=== PATIENT | male | born 1950 | race Caucasian/White ===

== ENCOUNTER 2016-08-20 09:11 | Inpatient (IN) | payer OTHER, MEDICAID ==
[~2016-08-20] VITALS: Ht 195.6 cm; Wt 144.2 kg
[2016-10-02] MEDS ORDERED: ASPIRIN 81M81 MG/TA2 PO (14:28)
[2016-10-02] MEDS ORDERED: PEPCID 20MG TAB20 MG PO (14:28)
[2016-10-02] MEDS ORDERED: FOLIC ACID 40400 MCG PO (14:29)
[2016-10-02] MEDS ORDERED: VITAMIN B-1000 MCG/T PO (14:30)
[2016-10-02] MEDS ORDERED: ALDACTONE 25MG25 M1 PO (14:30)
[2016-10-02] MEDS ORDERED: COZAAR 50MG50 MG/TAB PO (14:31)
[2016-10-02] MEDS ORDERED: REMERON SOLTAB15 MG PO (14:31)
[2016-10-02] MEDS ORDERED: GLUCOPHAGE500 MG/TAB PO (14:34)
[2016-10-02] MEDS ORDERED: FLOMAX 0.40.4 MG/CAP PO (14:35)
[2016-10-02] MEDS ORDERED: NEURONTIN300 MG/CAP PO (14:35)
[2016-10-02] MEDS ORDERED: LASIX 80MG TABL80 MG (14:35)
[2016-10-02] MEDS ORDERED: LASIX 80MG TABL80 MG PO (14:36)
[2016-10-02] MEDS ORDERED: TOPROL XL 25MG25 MG PO (14:37)
[2016-10-02] MEDS ORDERED: DESYREL 50MG50 MG PO (14:39)
[2016-10-02] MEDS ORDERED: VOLTAREN GEL 1%1 TU (14:40)
[2016-10-02] MEDS ORDERED: RESTORIL30 MG PO (14:41)
[2016-10-05] VITALS (11 sets, daily range): BP systolic 118–155; BP diastolic 56–89; PULSE 36–88; TEMP 98–98.7
[2016-10-05] MEDS ORDERED: ULTRAM 50MG TAB50 MG PO (10:00)
[2016-10-06 00:07] VITALS: BP 127/63; PULSE 55; TEMP 98
[2016-10-06 04:19] VITALS: BP 119/63; PULSE 76; TEMP 97.8
[2016-10-06 07:13] LABS: HEMATOCRIT 40.2 % (42.0-52.0); HEMOGLOBIN 13.5 g/dl (13.5-18.0)
[2016-10-06 07:35] VITALS: BP 138/73; PULSE 98; TEMP 97.5
[2016-10-06 12:04] VITALS: BP 129/67; PULSE 47; TEMP 98.3
[2016-10-06 12:50] LABS: BASO % 0.2 % (0.0-2.0); EOS % 0.4 % (0-4.0); GRAN # 8.4 (1.4-6.5); GRAN % 78.7 % (42.2-75.2); HEMATOCRIT 41.3 % (42.0-52.0); HEMOGLOBIN 13.7 g/dl (13.5-18.0); LYMPH # 1.3 (1.2-3.4); LYMPH % 12.1 % (20.0-51.0); MEAN CELL VOLUME 93 fl (80.0-100.0); MEAN CORPUSCULAR HEMOGLOBIN 31 pg (27.0-31.0); MEAN CORPUSCULAR HGB CONC 33 g/dl (33.0-37.0); MEAN PLATELET VOLUME 10.9 fl (7.4-10.4); MONO # 0.9 (0.1-0.6); MONO % 8.2 % (1.7-9.3); PLATELET COUNT 106 K/mm3 (130-400); RED BLOOD COUNT 4.46 M/mm3 (4.20-5.60); REDCELL DISTRIBUTION WIDTH-CV 13.6 % (11.5-14.5); WHITE BLOOD COUNT 10.6 K/mm3 (4.8-10.8)
[2016-10-06 12:58] LABS: ADJUSTED CALCIUM 10.4 mg/dL (8.4-10.2); ALBUMIN 3.3 gm/dL (3.5-5.0); BILIRUBIN,TOTAL 0.8 mg/dL (0.0-1.0); CALCIUM 9.8 mg/dL (8.4-10.2); CREATININE, serum 0.89 mg/dL (0.66-1.25); POTASSIUM 4.2 mmol/L (3.4-5.0); TOTAL PROTEIN 6.3 gm/dL (6.4-8.2)
[2016-10-06 16:05] VITALS: BP 146/65; PULSE 52; TEMP 98.3
[2016-10-06 20:18] VITALS: BP 117/63; PULSE 52; TEMP 98.5
[2016-10-07 00:20] VITALS: BP 125/87; PULSE 48; TEMP 98.1
[2016-10-07 04:02] VITALS: BP 148/77; PULSE 45; TEMP 98.1
[2016-10-07 07:01] VITALS: BP 152/70; PULSE 100; TEMP 98.9
[2016-10-07 07:38] LABS: HEMATOCRIT 39.6 % (42.0-52.0)
[2016-10-07] MEDS ORDERED: ASPIRIN 32325 MG/TAB PO (09:40)
[2016-10-07] MEDS ORDERED: GLUCOPHAGE500 MG/TAB PO (09:40)
[2016-10-07] MEDS ORDERED: MINOCYCLIN100 MG/CAP PO (10:10)
[2016-10-07] MEDS ORDERED: NORCO 325 MG-7.1 TAB PO (10:11)
[2016-10-07] MEDS ORDERED: ROXICODONE 55 MG/TAB PO (10:11)
[2016-10-07] MEDS ORDERED: FLEXERIL 1010 MG/TAB PO (10:12)
[2016-10-07 11:41] VITALS: BP 144/73; PULSE 68; TEMP 98.5
== END 2016-10-07 16:43 | disposition home or self-care (01) | DRG 470 ==
LOC: JCC 10-05 08:23
PROVIDERS: Internal Medicine; Orthopaedic Surgery
PROC: 0SRC0J9 Replacement of Right Knee Joint with Synthetic Substitute, Cemented, Open Approach (ICD-10-PCS; principal; 2016-10-05 13:30)
DX: M17.11 Unilateral primary osteoarthritis, right knee (principal); Z68.41 Body mass index [BMI] 40.0-44.9, adult; I50.20 Unspecified systolic (congestive) heart failure; E66.01 Morbid (severe) obesity due to excess calories; E11.9 Type 2 diabetes mellitus without complications; Z79.84 Long term (current) use of oral hypoglycemic drugs; Z85.820 Personal history of malignant melanoma of skin; I12.9 Hypertensive chronic kidney disease with stage 1 through stage 4 chronic kidney disease, or unspecified chronic kidney disease; N18.3 Chronic kidney disease, stage 3 (moderate)
CPT/HCPCS: 99223; 99232-AI; A4315; A9284; C1713; C1776; J0690; J1100; J1815; J2250; J2270; J2405; J2704; J3260; J7030

== ENCOUNTER → 2016-09-22 | Outpatient (CLI) | payer OTHER, MEDICAID ==
[~2016-09-22] MED LIST: ALDACTONE 25MG25 M1 PO; ASPIRIN 32325 MG/TAB PO; ASPIRIN 81M81 MG/TA2 PO; COZAAR 50MG50 MG/TAB PO; DESYREL 50MG50 MG PO; ELIQUIS 5MG PO; FERROUS SU325 MG/TAB PO; FLEXERIL 1010 MG/TAB PO; FLOMAX 0.40.4 MG/CAP PO; FOLIC ACID 40400 MCG PO; GLUCOPHAGE500 MG/TAB PO; GOOD NEIGH1200 MG/15 PO; LASIX 80MG TABL80 MG; LASIX 80MG TABL80 MG PO; MINOCYCLIN100 MG/CAP PO; NATURAL E400 IU PO; NEURONTIN300 MG/CAP PO; NORCO 325 MG-7.1 TAB PO; PEPCID 20MG TAB20 MG PO; REMERON SOLTAB15 MG PO; RESTORIL30 MG PO; ROXICODONE 55 MG/TAB PO; SENOKOT8.6 MG PO; TOPROL XL 25MG25 MG PO; TYLENOL 500MG500 MG PO; ULTRAM 50MG TAB50 MG PO; VITAMIN B-1000 MCG/T PO; VITAMIN C500 MG PO; VOLTAREN GEL 1%1 TU
[2016-09-22 18:33] LABS: HIV 1/2 Antibodies Non-Reactive; HIV-1p24 Antigen Non-Reactive
== END ==
LOC: ZCOL.LAB 16:55 → COL.LAB 16:55
PROVIDERS: Orthopaedic Surgery
DX: Z01.812 Encounter for preprocedural laboratory examination (principal); M25.861 Other specified joint disorders, right knee

== ENCOUNTER 2016-11-03 15:43 | Inpatient (IN) | payer MEDICARE, MEDICAID ==
[~2016-11-03] VITALS: Ht 195.6 cm; Wt 129.6 kg
[~2016-11-03 15:43] MED LIST changes: -ELIQUIS 5MG PO; -FERROUS SU325 MG/TAB PO; -GOOD NEIGH1200 MG/15 PO; -NATURAL E400 IU PO; -SENOKOT8.6 MG PO; -TYLENOL 500MG500 MG PO; -VITAMIN C500 MG PO
[2016-12-30] VITALS (11 sets, daily range): BP systolic 117–1218; BP diastolic 50–92; PULSE 45–73; TEMP 98.3–98.9
[2016-12-30] MEDS ORDERED: FERROUS SU325 MG/TAB PO (09:35)
[2016-12-30] MEDS ORDERED: VITAMIN C500 MG PO (09:36)
[2016-12-30] MEDS ORDERED: SENOKOT8.6 MG PO (09:36)
[2016-12-30] MEDS ORDERED: FOLIC ACID 40400 MCG PO (09:36)
[2016-12-30] MEDS ORDERED: NATURAL E400 IU PO (09:37)
[2016-12-30] MEDS ORDERED: RESTORIL30 MG PO (09:48)
[2016-12-30] MEDS ORDERED: NORCO 325 MG-7.1 TAB PO (09:50)
[2016-12-30 10:39] LABS: HIV 1/2 Antibodies Non-Reactive; HIV-1p24 Antigen Non-Reactive
[2016-12-31 01:54] VITALS: BP 143/87; PULSE 97; TEMP 98.8
[2016-12-31 04:00] VITALS: BP 138/69; PULSE 52; TEMP 98.2
[2016-12-31 07:36] LABS: HEMATOCRIT 39.1 % (42.0-52.0); HEMOGLOBIN 13.3 g/dl (13.5-18.0)
[2016-12-31 07:40] VITALS: BP 136/77; PULSE 65; TEMP 98.3
[2016-12-31 09:28] LABS: CALCIUM 9.6 mg/dL (8.4-10.2); CREATININE, serum 0.69 mg/dL (0.66-1.25); MAGNESIUM 1.8 mg/dL (1.6-2.3); POTASSIUM 3.8 mmol/L (3.4-5.0)
[2016-12-31 09:36] LABS: TOTAL IRON BINDING CAPACITY 284 ug/dL (261-462)
[2016-12-31 11:59] VITALS: BP 122/69; PULSE 65; TEMP 97.9
[2016-12-31 16:04] VITALS: BP 134/72; PULSE 68; TEMP 97.9
[2016-12-31 21:51] VITALS: BP 142/84; PULSE 69; TEMP 98.3
[2017-01-01 01:05] VITALS: BP 134/88; PULSE 78; TEMP 98.4
[2017-01-01 04:34] VITALS: BP 142/71; PULSE 64; TEMP 98.3
[2017-01-01 07:29] LABS: HEMATOCRIT 37.3 % (42.0-52.0); HEMOGLOBIN 12.8 g/dl (13.5-18.0)
[2017-01-01 08:50] VITALS: BP 116/56; PULSE 77; TEMP 98.4
[2017-01-01 12:38] VITALS: BP 134/69; PULSE 87; TEMP 98.8
[2017-01-01] MEDS ORDERED: ELIQUIS 5MG PO (13:50)
[2017-01-01] MEDS ORDERED: TYLENOL 500MG500 MG PO (13:50)
[2017-01-01] MEDS ORDERED: GOOD NEIGH1200 MG/15 PO (13:51)
[2017-01-01] MEDS ORDERED: ROXICODONE 55 MG/TAB PO (13:52)
[2017-01-01] MEDS ORDERED: TOPROL XL 25MG25 MG PO (13:56)
[2017-01-01 16:00] VITALS: BP 151/83; PULSE 70; TEMP 98.1
== END 2017-01-01 17:02 | disposition home or self-care (01) | DRG 470 ==
LOC: JCC 12-30 07:30 → SURG 12-30 08:06 → JCC 12-30 15:10 → SURG 01-01 17:02
PROVIDERS: Internal Medicine; Orthopaedic Surgery
PROC: 0SRD0J9 Replacement of Left Knee Joint with Synthetic Substitute, Cemented, Open Approach (ICD-10-PCS; principal; 2016-12-30 15:10)
DX: M17.12 Unilateral primary osteoarthritis, left knee (principal); I13.0 Hypertensive heart and chronic kidney disease with heart failure and stage 1 through stage 4 chronic kidney disease, or unspecified chronic kidney disease; I50.22 Chronic systolic (congestive) heart failure; I42.0 Dilated cardiomyopathy; E11.22 Type 2 diabetes mellitus with diabetic chronic kidney disease; N18.3 Chronic kidney disease, stage 3 (moderate); I48.2 Chronic atrial fibrillation; M06.9 Rheumatoid arthritis, unspecified; I87.2 Venous insufficiency (chronic) (peripheral); E66.01 Morbid (severe) obesity due to excess calories; Z68.36 Body mass index [BMI] 36.0-36.9, adult
CPT/HCPCS: 99223; 99232-AI; A4315; A9284; C1713; C1776; J0690; J1100; J2250; J2405; J2704; J3010; J7120

== ENCOUNTER → 2017-09-09 | Outpatient (CLI) | payer MEDICARE, MEDICAID ==
[~2017-09-09] MED LIST changes: +ELIQUIS 5MG PO; +FERROUS SU325 MG/TAB PO; +GOOD NEIGH1200 MG/15 PO; +NATURAL E400 IU PO; +SENOKOT8.6 MG PO; +TYLENOL 500MG500 MG PO; +VITAMIN C500 MG PO
[2017-09-09 11:19] LABS: HEMATOCRIT 42.7 % (42.0-52.0); HEMOGLOBIN 14.5 g/dl (13.5-18.0); MEAN CELL VOLUME 93 fl (80.0-100.0); MEAN CORPUSCULAR HEMOGLOBIN 32 pg (27.0-31.0); MEAN CORPUSCULAR HGB CONC 34 g/dl (33.0-37.0); MEAN PLATELET VOLUME 10.5 fl (7.4-10.4); PLATELET COUNT 116 K/mm3 (130-400); RED BLOOD COUNT 4.61 M/mm3 (4.20-5.60); REDCELL DISTRIBUTION WIDTH-CV 13.7 % (11.5-14.5)
[2017-09-09 11:47] LABS: ERYTHROCYTE SEDIMENTATION RATE 5 mm/hr (0-30)
== END ==
LOC: COL.LAB 10:40
PROVIDERS: Orthopaedic Surgery
DX: M79.651 Pain in right thigh (principal); M25.551 Pain in right hip

== ENCOUNTER 2017-09-29 14:50 | Inpatient (IN) | payer MEDICARE, MEDICAID ==
[~2017-09-29] VITALS: Ht 195.6 cm; Wt 148.4 kg
[2017-11-11] VITALS (11 sets, daily range): BP systolic 120–159; BP diastolic 46–95; PULSE 40–84; TEMP 97.9–99.7
[2017-11-11 15:56] LABS: BASO % 0.2 % (0.0-2.0); EOS # 0.1 (0.0-0.7); EOS % 0.7 % (0-4.0); GRAN # 7.3 (1.4-6.5); GRAN % 79.7 % (42.2-75.2); HEMATOCRIT 41.7 % (42.0-52.0); HEMOGLOBIN 13.9 g/dl (13.5-18.0); LYMPH # 1.1 (1.2-3.4); LYMPH % 11.9 % (20.0-51.0); MEAN CELL VOLUME 96 fl (80.0-100.0); MEAN CORPUSCULAR HEMOGLOBIN 32 pg (27.0-31.0); MEAN CORPUSCULAR HGB CONC 33 g/dl (33.0-37.0); MEAN PLATELET VOLUME 10.1 fl (7.4-10.4); MONO # 0.7 (0.1-0.6); MONO % 7.3 % (1.7-9.3); PLATELET COUNT 105 K/mm3 (130-400); RED BLOOD COUNT 4.36 M/mm3 (4.20-5.60); REDCELL DISTRIBUTION WIDTH-CV 14.2 % (11.5-14.5)
[2017-11-11 16:11] LABS: CALCIUM 8.9 mg/dL (8.4-10.2); CREATININE, serum 0.74 mg/dL (0.66-1.25); MAGNESIUM 1.8 mg/dL (1.6-2.3); POTASSIUM 4.6 mmol/L (3.4-5.0)
[2017-11-11 16:22] LABS: TROPONIN-I 0.019 ng/mL (0.000-0.034)
[2017-11-11 16:41] LABS: TSH w REFLEX 0.83 uIU/mL (0.465-4.680)
[2017-11-11 17:53] LABS: HEMATOCRIT 41.7 % (42.0-52.0)
[2017-11-12] VITALS (7 sets, daily range): BP systolic 111–148; BP diastolic 58–74; PULSE 52–77; TEMP 98.4–100
[2017-11-12 07:35] LABS: HEMOGLOBIN 13.1 g/dl (13.5-18.0)
[2017-11-12 07:53] LABS: CALCIUM 8.8 mg/dL (8.4-10.2); CREATININE, serum 0.78 mg/dL (0.66-1.25); POTASSIUM 3.9 mmol/L (3.4-5.0)
[2017-11-13 00:16] VITALS: BP 126/70; PULSE 60; TEMP 98.1
[2017-11-13 04:55] VITALS: BP 102/48; PULSE 74; TEMP 98.1
[2017-11-13 08:52] VITALS: BP 113/53; PULSE 66; TEMP 98.2
[2017-11-13 12:04] VITALS: BP 121/75; PULSE 51; TEMP 98.1
[2017-11-13 15:59] VITALS: BP 118/97; PULSE 57; TEMP 98.1
[2017-11-13 20:05] VITALS: BP 112/52; PULSE 84; TEMP 98.6
[2017-11-14] VITALS (7 sets, daily range): BP systolic 118–145; BP diastolic 56–82; PULSE 55–93; TEMP 97.9–99.1
[2017-11-14 06:55] LABS: BASO % 0.1 % (0.0-2.0); EOS # 0.2 (0.0-0.7); EOS % 2.9 % (0-4.0); GRAN # 5.1 (1.4-6.5); GRAN % 70.1 % (42.2-75.2); HEMOGLOBIN 12.2 g/dl (13.5-18.0); LYMPH # 1.1 (1.2-3.4); LYMPH % 15.6 % (20.0-51.0); MEAN CELL VOLUME 94 fl (80.0-100.0); MEAN CORPUSCULAR HEMOGLOBIN 32 pg (27.0-31.0); MEAN CORPUSCULAR HGB CONC 34 g/dl (33.0-37.0); MEAN PLATELET VOLUME 10.7 fl (7.4-10.4); MONO # 0.8 (0.1-0.6); PLATELET COUNT 94 K/mm3 (130-400); RED BLOOD COUNT 3.87 M/mm3 (4.20-5.60); REDCELL DISTRIBUTION WIDTH-CV 14.4 % (11.5-14.5)
[2017-11-14 06:58] LABS: HEMATOCRIT 36.3 % (42.0-52.0)
[2017-11-15 04:31] VITALS: BP 153/82; PULSE 71; TEMP 98.1
[2017-11-15 07:31] LABS: HEMOGLOBIN 12.4 g/dl (13.5-18.0)
[2017-11-15 07:36] LABS: HEMATOCRIT 36.8 % (42.0-52.0)
[2017-11-15 07:37] VITALS: BP 129/81; PULSE 66; TEMP 97.9
[2017-11-15 07:43] LABS: BILIRUBIN,TOTAL 1.8 mg/dL (0.0-1.0); CALCIUM 9.3 mg/dL (8.4-10.2); CREATININE, serum 0.64 mg/dL (0.66-1.25); POTASSIUM 3.7 mmol/L (3.4-5.0); TOTAL PROTEIN 6.2 gm/dL (6.4-8.2)
[2017-11-15 11:21] VITALS: BP 149/84; PULSE 52; TEMP 98.2
[2017-11-15 17:14] VITALS: BP 115/63; PULSE 51; TEMP 98.3
[2017-11-15 19:17] VITALS: BP 130/73; PULSE 45; TEMP 99.1
[2017-11-16 00:18] VITALS: BP 145/91; PULSE 68; TEMP 98.6
[2017-11-16 04:12] VITALS: BP 137/65; PULSE 85; TEMP 98.9
[2017-11-16 08:08] VITALS: BP 124/74; PULSE 63; TEMP 98.6
[2017-11-16 11:32] VITALS: BP 102/61; PULSE 55; TEMP 98
[2017-11-16 15:49] VITALS: BP 114/59; PULSE 57; TEMP 97.9
[2017-11-16 19:42] VITALS: BP 148/70; PULSE 97; TEMP 98.4
[2017-11-17] VITALS: BP 117/67; PULSE 86; TEMP 98.3
[2017-11-17 04:39] VITALS: BP 121/67; PULSE 48; TEMP 98.3
[2017-11-17 07:39] VITALS: BP 115/70; PULSE 55; TEMP 98.4
[2017-11-17] MEDS ORDERED: NORCO 325 MG-7.1 TAB PO (09:37)
[2017-11-17] MEDS ORDERED: LASIX 40MG TABL40 MG PO (09:41)
[2017-11-17] MEDS ORDERED: GOOD NEIGH1200 MG/15 PO (09:42)
[2017-11-17] MEDS ORDERED: ELIQUIS 5MG PO (09:44)
[2017-11-17 11:52] VITALS: BP 130/77; PULSE 55; TEMP 97.7
== END 2017-11-17 14:35 | disposition swing bed (61) | DRG 467 ==
LOC: SURG 11-11 07:30 → JCC 11-11 07:30 → SURG 11-11 09:00 → JCC 11-11 19:00
PROVIDERS: Nurse Practitioner; Nurse Practitioner Family; Orthopaedic Surgery
PROC: 0SP909Z Removal of Liner from Right Hip Joint, Open Approach (ICD-10-PCS; 2017-11-11)
PROC: 0SUA09Z Supplement Right Hip Joint, Acetabular Surface with Liner, Open Approach (ICD-10-PCS; 2017-11-11)
PROC: 0SPR0JZ Removal of Synthetic Substitute from Right Hip Joint, Femoral Surface, Open Approach (ICD-10-PCS; 2017-11-11)
PROC: 0SRR0JA Replacement of Right Hip Joint, Femoral Surface with Synthetic Substitute, Uncemented, Open Approach (ICD-10-PCS; principal; 2017-11-11 10:00)
DX: T84.84XA Pain due to internal orthopedic prosthetic devices, implants and grafts, initial encounter (principal); I42.0 Dilated cardiomyopathy; T84.89XA Other specified complication of internal orthopedic prosthetic devices, implants and grafts, initial encounter; I48.2 Chronic atrial fibrillation; E11.9 Type 2 diabetes mellitus without complications; N18.3 Chronic kidney disease, stage 3 (moderate); I12.9 Hypertensive chronic kidney disease with stage 1 through stage 4 chronic kidney disease, or unspecified chronic kidney disease; Z85.828 Personal history of other malignant neoplasm of skin; M06.9 Rheumatoid arthritis, unspecified; G89.29 Other chronic pain; Z79.01 Long term (current) use of anticoagulants; I87.2 Venous insufficiency (chronic) (peripheral); Z96.641 Presence of right artificial hip joint
CPT/HCPCS: 99223; 99231-AI; 99232-AI; A4314; A9284; C1776; J0690; J2250; J2270; J2405; J2704; J3010; J7030

== ENCOUNTER → 2017-11-02 | Outpatient (CLI) | payer MEDICARE, MEDICAID ==
[2017-11-02 16:26] LABS: HIV 1/2 Antibodies Non-Reactive; HIV-1p24 Antigen Non-Reactive
== END ==
LOC: COL.LAB 15:21
PROVIDERS: Orthopaedic Surgery
DX: Z01.812 Encounter for preprocedural laboratory examination (principal)